=== PATIENT | male | born 1950 | race Caucasian/White ===

== ENCOUNTER 2022-10-20 15:47 | Emergency (ER) | payer MEDICARE, SELFPAY ==
--- NOTE | ~2022-10-20 | XR_ITS ---
XR chest 2V DATE: 10/20/2022 16:08 INDICATION: Persistent cough. Expiratory wheezing. TECHNIQUE: 2 views COMPARISON: None FINDINGS: There is mild middle lobe infiltrate or atelectasis. The remaining lung sanchez are clear. No pleural effusion or pulmonary vascular congestion or pneumothorax. Normal heart size. No hilar or mediastinal enlargement. There is mild aortic unfolding. Degenerative spurring of the thoracic spine. IMPRESSION: Mild middle lobe infiltrate or atelectasis Reviewed, dictated and finalized at location A.
[2022-10-20 15:55] VITALS: BP 143/49; PULSE 48; RESP 18; TEMP 36.9; O2SAT 97
--- NOTE | 2022-10-20 16:46 | ED.URI ---
HPI - URI/Sore Throat General Chief Complaint: Upper Respiratory Infection Stated Complaint: Cough Time Seen by Provider: 10/20/22 16:15 Source: patient, RN notes reviewed and old records reviewed Mode of arrival: ambulatory Limitations: no limitations History of Present Illness HPI Narrative: 71 year old male presents to [facility] care with complaints of cough with some congestion for one week duration. Patient reports that he iants to get checked outs coughing up some yellowish mucous which is thick. Patient denies any fevers, chills or sweats reports no body aches.Patient does admit to some shortness of breath with activity but denies any acute episodes of dyspnea. Patient reports that he is concerned for pneumonia. Patient has not taken any OTC medications for his symptoms. MD elicited complaint: cough, rhinorrhea, nasal congestion and other (shortness of breath) Onset (ago): week(s) (1) Pain scale (0-10): 3 Description of mucous: yellow Able to tolerate fluids by mouth: Yes Associated symptoms: rhinorrhea, nasal congestion and cough Treatments prior to arrival: none Related Data Home Medications Medication Instructions Recorded Confirmed allopurinol 300 mg tablet mg 10/20/22 amlodipine 5 mg tablet mg 10/20/22 atorvastatin 40 mg tablet mg 10/20/22 finasteride 5 mg tablet mg 10/20/22 fluoxetine 20 mg capsule mg 10/20/22 gabapentin 300 mg capsule mg 10/20/22 hydrocodone 10 mg-acetaminophen tablet 10/20/22 325 mg tablet lisinopril 40 mg tablet mg 10/20/22 metformin 1,000 mg tablet mg 10/20/22 metoprolol succinate 25 mg mg PO 10/20/22 tablet,extended release 24 hr sildenafil 100 mg tablet mg 10/20/22 temazepam 30 mg capsule mg 10/20/22 tizanidine 4 mg tablet mg 10/20/22 Allergies Allergy/AdvReac Type Severity Reaction Status Date / Time Penicillins Allergy Unknown Verified 10/20/22 16:02 Review of Systems Review of Systems: CONSTITUTIONAL: Denies malaise, chills, sweats, or fever. EYES: Denies visual changes, redness, or discharge. ENT: Reports rhinorrhea, congestion, sinus pain,no otalgia or sore throat. CARDIOVASCULAR: Denies chest pain, palpitations, or edema. RESPIRATORY: Reports cough with yellow phlegm.? Denies acute dyspnea, admits to some dyspnea with exertion. GASTROINTESTINAL: Denies abdominal pain, nausea, vomiting, diarrhea SKIN: Denies rash or itching. MUSCULOSKELETAL: Denies myalgia. NEUROLOGIC: Denies headache. All systems reviewed & are unremarkable except as noted in HPI and below PMFSH Past Medical History Medical History (Updated 10/21/22 @ 19:42 by Morena Alford NP) Depression Diabetes Elevated cholesterol Gout Hypertension Surgical History Surgical History (Updated 10/20/22 @ 16:53 by Morena Alford NP) H/O arthroscopy of shoulder left S/P arthroscopy of left shoulder Social History Social History (Updated 10/21/22 @ 19:39 by Morena Alford NP) Smoking status: Former smoker Tobacco type: cigarettes Alcohol intake: current Alcohol use details: social Substance use type: does not use Gender identity (if verbalized by the patient): Male Comments At time of signature, agree with nursing past medical, surgical, social and family history. There is no relevant family history pertinent to the presenting complaint Exam Narrative: GENERAL: Well-appearing, well-nourished, and in no acute distress. HEAD: Normocephalic EYES: PERRLA, conjunctivae clear ENT: Nares clear, turbinates edematous and erythematous, clear to yellowish discharge. Mucous membranes moist. TM pearly wolfe with dull light reflex bilaterally; no tragal tenderness. Oropharynx erythematous without lesions. Tonsils not enlarged and without exudate, no drooling, no hoarseness, no trismus, uvula midline. NECK: Supple. No lymphadenopathy CHEST: scattered wheezing with rhonchi right mid lobe, breath sounds equal. wheezing, rhonchi right mid base, no ral
== END 2022-10-20 17:08 | disposition home or self-care (01) ==
PROVIDERS: Emergency Provider Registered Nurse; PCP Family Medicine
DX: R05.9 Cough, unspecified (principal); R91.8 Other nonspecific abnormal finding of lung field; E11.9 Type 2 diabetes mellitus without complications; E78.00 Pure hypercholesterolemia, unspecified; M10.9 Gout, unspecified; I10 Essential (primary) hypertension; Z87.891 Personal history of nicotine dependence
CPT/HCPCS: 71046; 99213; G0463